=== PATIENT | male | born 1960 | race Caucasian/White ===

== ENCOUNTER → 2023-10-20 06:37 | Day surgery (SDC) | payer BC, SELFPAY | LOC: GI 06:37 | PROVIDERS: ATTENDING PHYSICIAN Specialist | DX: Z12.11 Encounter for screening for malignant neoplasm of colon (principal); K57.30 Diverticulosis of large intestine without perforation or abscess without bleeding; K56.2 Volvulus | CPT/HCPCS: G0121 ==